=== PATIENT | male | born 1965 | race Caucasian/White ===

== ENCOUNTER 2018-12-23 17:56 | Emergency (ER) | payer OTHER ==
[~2018-12-23] VITALS: Ht 274.3 cm; Wt 108.9 kg
[2018-12-23 18:14] VITALS: BP 161/97
[2018-12-23] MEDS ORDERED: DEXAMETHASONE SOD PHOSPHATE 4 MG/ML VIAL IM ONE (18:30)
[2018-12-23] MEDS ORDERED: TRAMADOL HCL 50 MG TABLET PO ONE (18:30)
[2018-12-23] MEDS ORDERED: TRAMADOL HCL 50 MG TABLET ONE (18:35)
[2018-12-23] MEDS ORDERED: DEXAMETHASONE SOD PHOSPHATE 10 MG/ML VIAL ONE (18:35)
== END 2018-12-23 20:02 | disposition home or self-care (01) ==
LOC: ER 17:56
DX: R51 Headache (principal); M54.9 Dorsalgia, unspecified; G89.29 Other chronic pain
CPT/HCPCS: 70450; 96372; 99284; J1100